=== PATIENT | female | born 1985 | race African-American/Black ===

== ENCOUNTER 2017-09-12 19:39 | Emergency (ER) | payer BC ==
[2017-09-12 20:09] LABS: URINE HCG POC HCG NEGATIVE (Negative)
[2017-09-12 20:15] LABS: BILIRUBIN,URINE NEGATIVE (NEG); CLARITY,URINE CLOUDY; COLOR,URINE YELLOW; GLUCOSE,URINE NEGATIVE (NEG); NITRITE,URINE NEGATIVE (NEG); PROTEIN,URINE NEGATIVE (NEG-TRACE); UROBILINOGEN,URINE 0.2 mg/dL (0.2 mg/dL)
[2017-09-12 20:27] LABS: AMORPHOUS SEDIMENT,UR PRESENT /HPF; BACTERIA,URINE MOD /HPF (0-FEW); RBC,URINE 0 /HPF (0-2); SQUAMOUS EPITHELIAL CELL,UR FEW /LPF
== END 2017-09-12 21:38 | disposition home or self-care (01) ==
LOC: ER 19:39
DX: N39.0 Urinary tract infection, site not specified (principal); Z87.440 Personal history of urinary (tract) infections
CPT/HCPCS: 81001; 81025; 87491; 87591; 99284

== ENCOUNTER 2017-10-29 14:43 | Emergency (ER) | payer BC ==
[2017-10-29 15:06] LABS: URINE HCG POC Borderline hCG level (Negative)
[2017-10-29 15:14] LABS: BILIRUBIN,URINE NEGATIVE (NEG); CLARITY,URINE CLEAR; COLOR,URINE YELLOW; GLUCOSE,URINE NEGATIVE (NEG); NITRITE,URINE NEGATIVE (NEG); PROTEIN,URINE NEGATIVE (NEG-TRACE); UROBILINOGEN,URINE 0.2 mg/dL (0.2 mg/dL)
[2017-10-29 15:17] LABS: NEG OBC UR NEG; POS OBC UR POS; U PREG PATIENT NEGATIVE (NEG)
[2017-10-29 15:25] LABS: BACTERIA,URINE MODERATE /HPF (0-FEW); RBC,URINE 0 /HPF (0-2); SQUAMOUS EPITHELIAL CELL,UR MOD /LPF
[2017-10-29 15:59] LABS: NEG OBC SER NEG; POS OBC SER POS; PREG TEST PT QUAL NEGATIVE (NEG)
== END 2017-10-29 16:19 | disposition home or self-care (01) ==
LOC: ER 16:19
DX: R30.0 Dysuria (principal)
CPT/HCPCS: 81001; 81025; 84703; 87086; 87491; 87591; 99284

== ENCOUNTER → 2018-03-29 | Outpatient (CLI) | payer BC ==
[2017-10-29 14:45] VITALS: BP 147/87
[~2018-03-29] MED LIST: DOXY100T9 PO; FLUC150T PO
--- NOTE | 2018-03-29 15:44 | KCIC ---
Examination: CT MAXILLOFACIAL WO CONTRAST History: Acute recurrent sinusitis, swollen adenoids, sinus pressure, epistaxis Comparison/Correlation: None Findings: Axial images of the paranasal sinuses were obtained. Sagittal and coronal reformatted images were provided. Frontal sinuses are unremarkable. Sphenoid and ethmoid sinuses are clear. Maxillary sinuses are clear. There are no aniyah bullosa or Rosalee cells. Mastoid air cells are unremarkable. Globes and optic nerves are unremarkable. Visualized soft tissues are unremarkable. No bony destruction. Impression: No evidence of sinusitis. Electronically signed by: Joe Call MD (03/29/2018 3:41 PM) [facility]
--- NOTE | 2018-03-29 16:25 | KCIC ---
Thyroid ultrasound HISTORY: Nontoxic multinodular goiter. Right thyroid: * 6.8 cm x 3.3 cm x 4.5 cm * Large solid mass within the central to lower aspect, measures 4.2 cm x 3.7 cm x 2.5 cm. Mild vascularity identified within the mass. Isthmus: * 2.6 mm Left thyroid: * 5.1 cm x 1.6 cm x 1.4 cm * No evidence of mass. * Homogeneous echotexture without evidence of hypervascularity IMPRESSION: Large solid vascular mass within the right thyroid. Malignant etiology is possible. Electronically signed by: Jean Claude Weir MD (03/29/2018 4:22 PM) [facility]
== END | disposition home or self-care (01) ==
LOC: KCIC CT 14:06
PROVIDERS: ATTEND Otolaryngology
DX: E04.2 Nontoxic multinodular goiter (principal); J01.81 Other acute recurrent sinusitis
CPT/HCPCS: 70486; 76536

== ENCOUNTER → 2019-12-31 | Outpatient (CLI) | payer BC ==
[2017-10-29 14:45] VITALS: BP 147/87
[~2019-12-31] MED LIST changes: +DOXY-96 PO; -DOXY100T9 PO
--- NOTE | 2019-12-31 15:55 | RAD ---
Examination: THYROID ULTRASOUND History: Non Toxic Multinodular Goiter; RT Thyroidectomy Jun 2018 Comparison/Correlation: 03/29/2018 thyroid ultrasound exam Findings: Right thyroidectomy noted. Left thyroid lobe measures 4.4 cm x 1.8 cm x 1.3 cm. At the inferior aspect of the left thyroid lobe, there is a 0.5 cm x 0.34 cm x 0.24 similar cyst. Normal flow involving the left thyroid lobe is present. No dominant mass lesion identified. Normal left thyroid lobe echotexture noted. Impression: TI-RADS Category 1-benign. No suspicious process. Electronically signed by: Joe Call MD (12/31/2019 3:52 PM) [id number]
== END | disposition home or self-care (01) ==
LOC: US 15:05
PROVIDERS: ATTEND Otolaryngology
DX: E04.2 Nontoxic multinodular goiter (principal)
CPT/HCPCS: 76536

== ENCOUNTER 2020-10-22 11:46 | Emergency (ER) | payer BC ==
[~2020-10-22] VITALS: Ht 152.4 cm; Wt 172.0 kg
[2020-10-22 14:00] LABS: BILIRUBIN,URINE NEGATIVE (NEG); CLARITY,URINE CLEAR; COLOR,URINE YELLOW; NITRITE,URINE NEGATIVE (NEG); PROTEIN,URINE NEGATIVE (NEG-TRACE); UROBILINOGEN,URINE 0.2 mg/dL (0.2 mg/dL)
[2020-10-22] MEDS ORDERED: IV NORMAL SALINE 1000ML BAG 1,000 ML IV SCH (14:00)
[2020-10-22 14:04] LABS: BACTERIA,URINE MODERATE /HPF (0-FEW); RBC,URINE 0 /HPF (0-2); WBC,URINE OCC /HPF (0-4)
--- NOTE | 2020-10-22 14:43 | PHYS DOC ---
Past Medical History Past Medical History: Hypertension, Hyperthyroid, IBS, Other Additional Past Medical Histor: herpes (LIZZ HODGE SECTION BEAMER) Past Surgical History: Other Additional Past Surgical Histo: gastric sleeve, partial thyroid (LIZZ HODGE SECTION BEAMER) Smoking Status: Never Smoker Alcohol Use: Occasionally Drug Use: None (LIZZ HODGE SECTION BEAMER) General Adult EDM: Chief Complaint: ABDOMINAL PAIN HPI: HPI: Patient is a 35 year old Female who presents with right lower quadrant pain for the last week with some nausea after eating. She states is a dull pressure type of pain. She states right now she does not really think it hurts if she says it is more of a " annoying" feeling. Patient denies chest pain, shortness of breath, fever, back pain, vomiting, diarrhea, constipation, headache, dizziness, focal weakness, numbness or tingling. Patient has a history of IBS of which she takes Linzess, Oestreich sleeve, hypertension, hyper thyroid. (LIZZ HODGE SECTION BEAMER) Review of Systems: Review of Systems: Constitutional: Denies fever or chills. [] Eyes: Denies change in visual acuity. [] HENT: Denies nasal congestion or sore throat. [] Respiratory: Denies cough or shortness of breath. [] Cardiovascular: Denies chest pain or edema. [] GI: + abdominal pain, +nausea, denies vomiting, bloody stools or diarrhea. [] : Denies dysuria. [] Musculoskeletal: Denies back pain or joint pain. [] Integument: Denies rash. [] Neurologic: Denies headache, focal weakness or sensory changes. [] Endocrine: Denies polyuria or polydipsia. [] Lymphatic: Denies swollen glands. [] Psychiatric: Denies depression or anxiety. [] (LIZZ HODGE SECTION BEAMER) Heart Score: C/O Chest Pain: No Risk Factors: Risk Factors: DM, Current or recent (<one month) smoker, HTN, HLP, family history of CAD, obesity. Risk Scores: Score 0 - 3: 2.5% MACE over next 6 weeks - Discharge Home Score 4 - 6: 20.3% MACE over next 6 weeks - Admit for Clinical Observation Score 7 - 10: 72.7% MACE over next 6 weeks - Early Invasive Strategies (CHEY HODGECATRINA Simmons APRN) Current Medications: Current Medications Medications (Trade) Dose Ordered Sig/Alonso Start Time Stop Time Status Last Admin Dose Admin Sodium Chloride 1,000 ml @ 1,000 mls/hr Q1H 10/22/20 14:00 10/22/20 14:59 (CHEY HODGECATRINA Simmons APRN) Allergies: Allergies: Allergies Coded Allergies Type Severity Reaction Last Updated Verified No Known Drug Allergies 10/04/15 No (CHEY HODGECATRINA Simmons APRN) Physical Exam: PE: Constitutional: Well developed, well nourished, no acute distress, non-toxic appearance. [] HENT: Normocephalic, atraumatic, bilateral external ears normal, oropharynx moist, no oral exudates, nose normal. [] Eyes: PERRLA, EOMI, conjunctiva normal, no discharge. [] Neck: Normal range of motion, no tenderness, supple, no stridor. [] Cardiovascular:Heart rate regular rhythm, no murmur [] Lungs & Thorax: Bilateral breath sounds clear to auscultation [] Abdomen: Bowel sounds normal, soft, right lower quadrant tenderness, no masses, no pulsatile masses. [] Skin: Warm, dry, no erythema, no rash. [] Back: No tenderness, no CVA tenderness. [] Extremities: No tenderness, no cyanosis, no clubbing, ROM intact, no edema. [] Neurologic: Alert and oriented X 3, normal motor function, normal sensory function, no focal deficits noted. [] Psychologic: Affect normal, judgement normal, mood normal. [] (CHEY HODGECATRINA Simmons APRN) Current Patient Data: Labs: Laboratory Tests Test 10/22/20 13:30 10/22/20 13:38 Urine Collection Type Unknown Urine Color Yellow Urine Clarity Clear Urine pH 5.0 (<5.0-8.0) Urine Specific [place] <=1.005 (1.000-1.030) Urine Protein Negative mg/dL (NEG-TRACE) Urine Glucose (UA) Negative mg/dL (NEG) Urine Ketones (Stick) Negative mg/dL (NEG) Urine Blood Negative (NEG) Urine Nitrite Negative (NEG) Urine Bilirubin Negative (NEG) Urine Urobilinogen Dipstick 0.2 mg/dL (0.2 mg/dL) Urine Leukocyte Esterase Negative (NEG) Urine RBC 0 /HPF (0-2) Urine WBC Occ /HPF (0-4) Urine Squamous Epithelial Cells Mod /LPF Urine Bacteria Moderate /HPF (0-FEW) POC Urine HCG, Qualitative Hcg negative (Negative) Vital Signs: Vital Signs Date Time Temp Pulse Resp B/P (MAP) Pulse Ox O2 Delivery O2 Flow Rate FiO2 10/22/20 13:30 97.8 80 20 132/90 (104) 100 Room Air 97.8 (LIZZ HODGE APRN) EKG: EKG: [] (LIZZ HODGE APRN) Radiology/Procedures: Radiology/Procedures: [] Impression: [facility] [address] [place] [address] IMAGING REPORT Signed PATIENT: RIVERA ALBERTS ACCOUNT: [id number] : 1985 LOCATION: ER AGE: 35 SEX: F EXAM STATUS: REG ER ORD. PHYSICIAN: LIZZ HODGE APRN REASON: RLQ PAIN WITH NAUSEA, TENDERNESS PROCEDURE: CT ABD PELV W/ IV CONTRST ONLY CT abdomen and pelvis with contrast HISTORY: Right lower quadrant pain with nausea, tenderness CT abdomen pelvis was done using 75 mL Omnipaque 300 contrast. There is a large peripherally enhancing lesion the liver suggesting a hemangioma. There is also a lesion at the dome of the left liver which also partially enhances by the delayed images with slight peripheral enhancement suggesting a hemangioma. There is no old study for comparison. Spleen and adrenal glands are normal. There is an accessory spleen. There is no mass or hydronephrosis in the kidneys. There is no periaortic adenopathy. Pancreas is normal. Appendix is normal. There is no free air or small bowel obstruction. There is a low-density lesion in the uterus, leiomyoma is possible, other uterine mass would be possible. Ovaries are within normal limits in size. There is no free fluid in the pelvis. Visualized lung bases are clear. There is no pleural effusion. Intrarenal collecting systems of the kidneys are normal and delayed images. The right lobe liver lesion partially enhances on delayed images. The left lobe liver lesion also partially enhances on delayed images. Patient's had a sleeve gastrectomy. There is no small bowel obstruction. IMPRESSION: 1. 2 Enhancing liver lesions suggesting hemangiomas with a large one on the right and a smaller one at the dome on the left. 2. Previous sleeve gastrectomy. 3. Normal appendix. 4. No hydronephrosis in the kidneys. 5. Low-density lesion in the uterus probable leiomyoma, follow-up with an ultrasound could be of benefit. PQRS Compliance Statement: One or more of the following individualized dose reduction techniques were utilized for this examination: 1. Automated exposure control 2. Adjustment of the mA and/or kV according to patient size 3. Use of iterative reconstruction technique Electronically signed by: Jeanmarie Moore MD (10/22/2020 4:09 PM) [facility] DICTATED and SIGNED BY: JEANMARIE MOORE MD DATE: 10/22/20 [id number] (LIZZ HODGE APRN) Course & Med Decision Making: Course & Med Decision Making Pertinent Labs and Imaging studies reviewed. (See chart for details) See HPI. Alert and oriented x4. Ambulatory with a steady gait. Abdomen is soft tender with palpation to the right lower quadrant. Speaks in full clear sentences. Skin pink warm and dry. Vital signs within normal limits. Afebrile. [] (LIZZ HODGE APRN) Dragon Disclaimer: Dragon Disclaimer: This electronic medical record was generated, in whole or in part, using a voice recognition dictation system. (LIZZ HODGE APRN) Departure Departure Impression: Primary Impression: Nonspecific abdominal pain Additional Impressions: Nausea & vomiting Qualified Codes: R11.2 - Nausea with vomiting, unspecified Abnormal radiologic density Disposition: 01 HOME / SELF CARE / HOMELESS Condition: STABLE Referrals: JUAN R MENA MD (PCP) JULIET MCELROY Jr, MD Patient Instructions: Abdominal Pain, Incidental Abnormal Radiological Finding, Nausea and Vomiting Additional Instructions: Follow-up with your primary care provider and a post anesthesia room nurse. Drink plenty of fluids. Take medication as prescribed and with food. If your symptoms worsen you can always return. Scripts Ondansetron (ONDANSETRON ODT) 4 Mg Tab.rapdis 1 TAB PO PRN Q6-8HRS, #16 TAB Prov: LIZZ HODGE APRN 10/22/20 Attending Signature Attending Signature I have participated in the care of this patient and I have reviewed and agree with all pertinent clinical information above including history, exam, and recommendations. (PHILLIP MACDONALD DO) LIZZ HODGE APRN Oct 22, 2020 14:43 PHILLIP MACDONALD DO Oct 23, 2020 13:18
[2020-10-22] MEDS ORDERED: fentaNYL PF VIAL 100 MCG/2 ML VIAL IVP ONE (15:15)
[2020-10-22 15:16] LABS: BASO # 0.1 x10^3/uL (0.0-0.2); BASO % 1 % (0-3); EOS # 0.1 x10^3/uL (0.0-0.7); EOS % 2 % (0-3); HEMATOCRIT 34.1 % (36.0-47.0); HEMOGLOBIN 10.8 g/dL (12.0-15.5); LYMPH # 1.6 x10^3/uL (1.0-4.8); LYMPH % 23 % (24-48); MEAN CORPUSCULAR HEMOGLOBIN 24 pg (25-35); MEAN CORPUSCULAR HGB CONC 32 g/dL (31-37); MEAN CORPUSCULAR VOLUME 75 fL (79-100); MONO # 0.4 x10^3/uL (0.0-1.1); MONO % 6 % (0-9); NEUT # 4.7 x10^3/uL (1.8-7.7); NEUT % 69 % (31-73); PLATELET COUNT 549 x10^3/uL (140-400); RED BLOOD COUNT 4.52 x10^6/uL (3.50-5.40); RED CELL DISTRIBUTION WIDTH 15.2 % (11.5-14.5); WHITE BLOOD COUNT 6.9 x10^3/uL (4.0-11.0)
[2020-10-22 15:25] LABS: CALCIUM 9.4 mg/dL (8.5-10.1); CREATININE 0.8 mg/dL (0.6-1.0); GFR 98.2; POTASSIUM 3.5 mmol/L (3.5-5.1)
[2020-10-22 15:27] LABS: PROTHROMBIN TIME PATIENT 14.1 SEC (11.7-14.0)
[2020-10-22 15:31] LABS: ALBUMIN 3.7 g/dL (3.4-5.0); ALBUMIN/GLOBULIN RATIO 0.8 (1.0-1.7); TOTAL BILIRUBIN 0.5 mg/dL (0.2-1.0); TOTAL PROTEIN 8.3 g/dL (6.4-8.2)
[2020-10-22] MEDS ORDERED: IOHEXOL 300 MG/ML 100ML VIAL. IV ONE (15:45)
[2020-10-22] MEDS ORDERED: CONTRAST GIVEN. MC PRN (15:45)
[2020-10-22 15:52] VITALS: BP 135/74
--- NOTE | 2020-10-22 16:11 | RAD ---
CT abdomen and pelvis with contrast HISTORY: Right lower quadrant pain with nausea, tenderness CT abdomen pelvis was done using 75 mL Omnipaque 300 contrast. There is a large peripherally enhancin g lesion the liver suggesting a hemangioma. There is also a lesion at the dome of the left liver whic h also partially enhances by the delayed images with slight peripheral enhancement suggesting a heman gioma. There is no old study for comparison. Spleen and adrenal glands are normal. There is an access ory spleen. There is no mass or hydronephrosis in the kidneys. There is no periaortic adenopathy. Faulkner creas is normal. Appendix is normal. There is no free air or small bowel obstruction. There is a low- density lesion in the uterus, leiomyoma is possible, other uterine mass would be possible. Ovaries ar e within normal limits in size. There is no free fluid in the pelvis. Visualized lung bases are clear . There is no pleural effusion. Intrarenal collecting systems of the kidneys are normal and delayed i mages. The right lobe liver lesion partially enhances on delayed images. The left lobe liver lesion a lso partially enhances on delayed images. Patient's had a sleeve gastrectomy. There is no small bowel obstruction. IMPRESSION: 1. 2 Enhancing liver lesions suggesting hemangiomas with a large one on the right and a smaller one a t the dome on the left. 2. Previous sleeve gastrectomy. 3. Normal appendix. 4. No hydronephrosis in the kidneys. 5. Low-density lesion in the uterus probable leiomyoma, follow-up with an ultrasound could be of bene fit. PQRS Compliance Statement: One or more of the following individualized dose reduction techniques were utilized for this examinat ion: 1. Automated exposure control 2. Adjustment of the mA and/or kV according to patient size 3. Use of iterative reconstruction technique Electronically signed by: Jeanmarie Moore MD (10/22/2020 4:09 PM) [facility]
[2020-10-22] MEDS ORDERED: ONDA4TAB12 PO (16:32)
== END 2020-10-22 16:53 | disposition home or self-care (01) ==
LOC: ER 11:46
DX: R10.819 Abdominal tenderness, unspecified site (principal); R10.31 Right lower quadrant pain; R11.2 Nausea with vomiting, unspecified; R93.3 Abnormal findings on diagnostic imaging of other parts of digestive tract; I10 Essential (primary) hypertension; K58.9 Irritable bowel syndrome, unspecified
CPT/HCPCS: 36415; 74177; 80053; 81001; 81025; 83690; 85025; 85610; 87086; 96360; 99285; J7030; Q9967